=== PATIENT | female | born 1955 | race Caucasian/White ===

== ENCOUNTER 2020-07-21 13:41 | Emergency (ER) | payer MEDICAID ==
[~2020-07-21] VITALS: Ht 152.4 cm; Wt 6.8 kg
[2020-07-21 13:50] VITALS: BP 109/84
--- NOTE | 2020-07-21 13:50 | NUR ---
PT PLACED IN COVID TENT OVERFLOW CHAIR 1.
--- NOTE | 2020-07-21 13:50 | NUR ---
65/F C/O SORE THROAT X1 DAY, COUGH X2 DAYS. DENIES FEVER OR CHILLS. DENIES CONTACT WITH ANYONE POSITIVE FOR COVID, DENIES LOSS OF TASTE OR SMELL. PT STATES "MY GRANDAUGHTER HAD STREP A COUPLE WEEKS AGO AND I THINK I HAVE STREP THROAT NOW." NO DROOLING NOTED. HX ASTHMA
--- NOTE | 2020-07-21 14:25 | NUR ---
COVID SWAB OBTAINED AND WALKED TO LAB
[2020-07-21 14:26] VITALS: BP 109/84
--- NOTE | 2020-07-21 14:26 | NUR ---
Patient discharged with v/s stable. Written and verbal after care instructions given and explained. Patient alert, oriented and verbalized understanding of instructions. Ambulatory with steady gait. All questions addressed prior to discharge. ID band removed. Patient advised to follow up with PMD. Rx of FLONASE, LORATIDINE, PROMETHAZINE, ACETAMINOPHEN given. Patient educated on indication of medication including possible reaction and side effects. Opportunity to ask questions provided and answered.
--- NOTE | 2020-07-22 20:53 | NUR ---
Covid results received from lab. Results = POSTIVE. Hard copy requested from lab and placed in infection controls mailbox.
== END 2020-07-21 14:26 | disposition home or self-care (01) ==
LOC: MED 13:41 → EDSEX 13:41 → MED 14:26
DX: U07.1 COVID-19 (principal); B34.9 Viral infection, unspecified; J45.909 Unspecified asthma, uncomplicated; Z88.5 Allergy status to narcotic agent
CPT/HCPCS: 99283; U0003